=== PATIENT | female | born 1975 | race Two or more races ===

== ENCOUNTER 2018-05-05 10:28 | Emergency (ER) | payer SELFPAY ==
[2018-05-05 10:59] VITALS: BP 108/77
--- NOTE | 2018-05-05 11:33 | ED ---
Throat Pain/Nasal Congestion - HPI Summary HPI Summary: 43 yr old female with the complaint of runny nose, sinus pressure, bilateral ear pain, coughing. She states the coughing is what is bothering her the most as well as the sinus pressure. She denies SOB. She does have a history of asthma. She has not smoked in 7 months. - History of Current Complaint Chief Complaint: UCGeneralIllness Time Seen by Provider: 05/05/18 11:07 - Allergies/Home Medications Allergies/Adverse Reactions: Allergies Allergy/AdvReac Type Severity Reaction Status Date / Time No Known Allergies Allergy Verified 05/05/18 10:51 Home Medications: Home Medications Aspirin/Sod Bicarb/Citric Acid [[place] Es Tab Eff] 1 each PO DAILY [History Confirmed 05/05/18] Atorvastatin* [Lipitor*] 20 mg PO 1700 05/05/18 [History Confirmed 05/05/18] Copper (Iud) [Paragard IUD] 1 unit IU ONCE 05/05/18 [History Confirmed 05/05/18] Lisinopril TAB* [Prinivil TAB*] 40 mg PO DAILY 05/05/18 [History Confirmed 05/05] metFORMIN* [Glucophage 850 MG TAB *] 850 mg PO BID 05/05/18 [History Confirmed 05/05/18] PMH/Surg Hx/FS Hx/Imm Hx Endocrine/Hematology History: Denies: Hx Diabetes Cardiovascular History: Denies: Hx Hypertension Respiratory History: Reports: Hx Asthma - Surgical History Surgery Procedure, Year, and Place: Tonsillectomy Infectious Disease History: No Infectious Disease History: Denies: Traveled Outside the [place] in Last 30 Days - Family History Known Family History: Positive: None - Social History Occupation: Employed Full-time Alcohol Use: None Substance Use Type: Reports: None Smoking Status (MU): Former Smoker Review of Systems Constitutional: Negative Positive: Sore Throat, Ear Ache, Nasal Discharge Positive: Cough All Other Systems Reviewed And Are Negative: Yes Physical Exam Triage Information Reviewed: Yes Vital Signs On Initial Exam: Initial Vitals Temp Pulse Resp BP Pulse Ox 98.1 F 77 18 108/77 98 05/05/18 10:53 05/05/18 10:53 05/05/18 10:53 05/05/18 10:53 05/05/18 10:53 Vital Signs Reviewed: Yes Appearance: Positive: Well-Appearing, No Pain Distress Skin: Positive: Warm, Skin Color Reflects Adequate Perfusion Head/Face: Positive: Normal Head/Face Inspection Eyes: Positive: EOMI ENT: Positive: Pharynx normal, Pharyngeal erythema, Nasal congestion, Nasal drainage, TMs normal, Sinus tenderness. Negative: Muffled voice, Hoarse voice Neck: Positive: Nontender Respiratory/Lung Sounds: Positive: Clear to Auscultation, Breath Sounds Present Cardiovascular: Positive: RRR. Negative: Murmur Abdomen Description: Positive: Nontender Musculoskeletal: Positive: Strength/ROM Intact Neurological: Positive: Sensory/Motor Intact, Alert, Oriented to Person Place, Time, CN Intact II-III Psychiatric: Positive: Normal - Hank Coma Scale Best Eye Response: 4 - Spontaneous Best Motor Response: 6 - Obeys Commands Best Verbal Response: 5 - Oriented Coma Scale Total: 15 Diagnostics - Vital Signs Vital Signs Temp Pulse Resp BP Pulse Ox 05/05/18 10:53 98.1 F 77 18 108/77 98 - Laboratory Lab Results: Lab Results 05/05/18 Range/Units 11:09 Group A Strep Rapid Negative (Negative) Lab Statement: Any lab studies that have been ordered have been reviewed, and results considered in the medical decision making process. EENT Course/Dx - Course Course Of Treatment: 43 yr old with coughing, sinus pressure. Will Rx with Biaxin, and also with prednison and albuterol MDI. - Diagnoses Provider Diagnoses: Sinusitis, Asthmatic bronchitis Discharge - Sign-Out/Discharge Documenting (check all that apply): Patient Departure All imaging exams completed and their final reports reviewed: No Studies - Discharge Plan Condition: Good Disposition: HOME Prescriptions: Albuterol HFA INHALER* [Ventolin HFA Inhaler*] 1 - 2 puff INH Q6H PRN #1 mdi PRN Reason: Cough Clarithromycin TAB* [Biaxin 500 MG TAB*] 500 mg PO BID #20 tab predniSONE TAB* [Deltasone 20 MG TAB*] 40 mg PO DAILY #8 tab Patient Education Materials: Sinusitis (ED), Asthma (ED), Bronchospasm (ED) Referrals: No Primary Care Phys,NOPCP [Primary Care Provider] - [facility] [place] [facility] REFERRAL [Outside] - 1 Day - Billing Disposition and Condition Condition: GOOD Disposition: Home
== END 2018-05-05 11:41 | disposition home or self-care (01) ==
LOC: UCCORT 10:28
DX: J32.9 Chronic sinusitis, unspecified (principal); J45.909 Unspecified asthma, uncomplicated; Z87.891 Personal history of nicotine dependence
CPT/HCPCS: 87651; 99212; G0463